=== PATIENT | male | born 1955 | race Caucasian/White ===

== ENCOUNTER 2019-07-06 05:44 | Inpatient (IN) | payer OTHER ==
[2019-06-27 09:19] LABS: HEMATOCRIT 41.8 % (42.0-52.0); HEMOGLOBIN 13.9 gm/dL (14.0-18.0); MCH 27.9 pg (26.0-34.0); MCHC 33.3 g/dL (28.0-37.0); MCV 83.8 fL (80.0-100.0); RBC 4.99 mil/uL (4.50-6.00); RDW 14.7 % (10.5-14.5); WBC 9.6 thou/uL (4.0-11.0)
[2019-06-27 09:28] LABS: URINE BILIRUBIN NEGATIVE (Negative); URINE BLOOD NEGATIVE (Negative); URINE CLARITY CLEAR; URINE COLOR YELLOW; URINE GLUCOSE-RANDOM* NEGATIVE (Negative); URINE KETONES NEGATIVE (Negative); URINE LEUKOCYTES-REFLEX NEGATIVE (Negative); URINE NITRITE-REFLEX NEGATIVE (Negative); URINE PROTEIN (DIPSTICK) NEGATIVE (Negative); URINE UROBILINOGEN 0.2 E.U./dl (0.2-1.0)
[2019-06-27 09:33] LABS: CALCIUM 9.8 mg/dL (8.5-10.1); CREATININE 1.1 mg/dL (0.7-1.3); POTASSIUM 3.9 mmol/L (3.5-5.1)
--- NOTE | 2019-06-27 10:26 | EKG ---
[address] [address] [place] [address] ELECTROCARDIOGRAM REPORT Name: ALEX GARZA Room #: PRE IN M.R.#: [id number] Admission: Attend Phys: Kb Cruz Discharge: Date of : 53 Report #: [id number] THIS REPORT FOR: //name// [facility] Test Date: 2019-06-27 Test Time: 09:13:55 Pat Name: ALEX GARZA Department: Room: Gender: M Director Of Catering: francy marshall : 1955 Requested By: Kb Velasquez Order Number: [id number] MD: Toni Keenan Measurements Intervals [place] Rate: 72 P: 37 IN: 175 QRS: -43 QRSD: 127 T: 89 QT: 432 QTc: 473 Interpretive Statements Sinus rhythm Incomplete RBBB and LAFB Left ventricular hypertrophy No previous ECG available for comparison Electronically Signed On 06-27-2019 10:25:40 SPREADER OPERATOR by Toni Keenan [email or web address] <ELECTRONICALLY SIGNED> By: Toni Keenan MD, [facility] 06/27/19 1025 0913 2 Toni Keenan MD, FACC /EPI
[~2019-07-06] VITALS: Ht 172.7 cm; Wt 127.0 kg
[~2019-07-06 05:44] MED LIST: COZAAR 25 MG TA25 M1 PO; HYDROCHLOROTHIA25 M2 PO; IBUPROFEN 200200 M1 PO; LIPITOR40 MG PO; TRAZODONE HCL50 MG PO; TYLENOL EXTRA500 MG PO; VITAMIN C125 MG PO
[2019-07-06 07:25] VITALS: BP 177/84
[2019-07-06 11:15] VITALS: BP 131/67
--- NOTE | 2019-07-06 12:17 | O ---
[facility] [place] [address] OPERATIVE REPORT Name: ALEX GARZA Room #: 442-P ADM IN M.R.#: [id number] Admission: 07/06/19 Attend Phys: Kb Cruz Discharge: Date of : 53 Report #: [id number] THIS REPORT FOR: //name// CC: Kb Velasquez DATE OF SERVICE: 07/06/2019 PREOPERATIVE DIAGNOSES: Left shoulder rotator cuff tear arthropathy with biceps tendinopathy and tearing. POSTOPERATIVE DIAGNOSES: Left shoulder rotator cuff tear arthropathy with biceps tendinopathy and tearing. PROCEDURE PERFORMED: Left reverse total shoulder arthroplasty with open biceps tenodesis. SURGEON: Kb Velasquez MD APPEALS REFEREE: Trudy Resendez PA-C. ANESTHESIA: General with preoperative ultrasound-guided interscalene block. FLUIDS: 750 mL crystalloid. ESTIMATED BLOOD LOSS: 75 mL IMPLANTS UTILIZED: DePuy Global Unite Delta Xtend standard stem size 12 with a size 1 eccentric epiphysis JOVEL coated, 42+4 lateralized glenosphere, a +6 polyethylene cup. DESCRIPTION OF PROCEDURE: After proper identification of the patient and operative site in preoperative holding area, the operative site was signed by myself. Prophylactic antibiotics given. The patient elected to receive an ultrasound-guided block after reviewing the risks, benefits, alternatives and potential complications with anesthesia. After a satisfactory block, the patient was brought back to the operative suite after induction of satisfactory general anesthesia, the patient was carefully positioned with head of bed elevated approximately 40 degrees in the beach chair. Head and neck were carefully positioned. Left shoulder was sterilely prepped and draped in the usual manner and a Sleek Audio limb positioning system was utilized throughout the entire procedure. Anterior deltopectoral approach was planned. Final skin draping was with Ioban. Skin was incised sharply. Full thickness skin flaps were developed. Cephalic vein in the deltopectoral interval was identified. The vein was most easily taken laterally. Subdeltoid space was carefully opened. Massive rotator cuff tear was noted. Lower portion of the [facility] [address] [place] [address] OPERATIVE REPORT Name: KAYLAALEX Room #: 442-P ADM IN M.R.#: [id number] Admission: 07/06/19 Attend Phys: Kb Cruz Discharge: Date of : 53 Report #: [id number] subscapularis was able to be released and a tag stitch was placed on this and a rotator cuff tear of the entire supraspinatus and majority of the infraspinatus was noted. Advanced degenerative changes were noted about the joint. Long head of the biceps tendon demonstrated advanced tendinopathy and high-grade partial thickness tearing. This was tenodesed to the undersurface of the pectoralis major tendon with #2 FiberWire. This was then followed proximally and resected. Humeral head osteotomy was planned. Humeral head was flattened with an oscillating saw. The canal was entered with a size 6 reamer and progressed up to a size 12, which matched the preoperative templating. Next, the cutting guide was attached. This was performed in approximately 15 degrees of retroversion. The guide was secured with half pins. The intramedullary aspect was removed with the soft tissues protected. Humeral head osteotomy was performed. Small portion of the posterior cuff was still intact. Peripheral osteophytes were removed and a protection plate was applied. Next, the shoulder was reduced in the anterior capsule was released off the remaining inferior subscapularis. Circumferential labral release and excision was performed as well as the biceps tendon. The patient had a large spur off of his more anterior inferior glenoid and with the soft tissues and axillary nerve carefully protected, this was removed. Capsule was released off its insertion on the inferior glenoid under direct observation while protecting the axillary nerve. After satisfactory soft tissue releases, a guide pin was placed, Metaglene guide was placed. Guide pin was advanced into the scapula. A guide pin placement was verified by palpation as well. This was then reamed and a Harley reamer was utilized as well. Any peripheral soft tissue was carefully removed. Step drill was utilized. Central peg was contained and a standard Metaglene was impacted into position, it had excellent fixation. Locking screws were placed superiorly and inferiorly starting inferior. These measured 30 and 24 mm and then two 18 nonlocking screws were placed in the anterior, posterior spot. These were sequentially tightened. Locking screws were locked and a +4 lateralized centered 42 mm glenosphere was placed over a guidewire and carefully positioned. The tightening screw was rotated counterclockwise, still a click was noted. After this was felt to be engaged, it was then tightened, impacted and tightened three additional times. It was fully seated and felt stable. At this point, the humerus was reamed with an acetabular reamer to accommodate a size 1 epiphysis. Peripheral osteophytes around the humerus were carefully removed. Trial was assembled, placed into position and then a +3 and +6 polyethylene cups were utilized with the +6 providing the best overall fit and stability. Trial implants were removed multiple times throughout the procedure, antibiotic irrigant was utilized. One drill hole was placed through the anterior cortex of the humerus and a #2 FiberWire was passed through this. Global Unite distal stem was assembled with a size 1 epiphysis. This was carefully impacted into position, was well seated and felt stable. The sutures were wrapped around the stem and utilized to repair the subscapularis of its inferior aspect with modified Charlie-Bill stitch. After the +6 polyethylene liner had been carefully impacted into position and the shoulder reduced, shoulder was stable to longitudinal traction. There was no propensity for dislocation with attempted [facility] [address] [place] [address] OPERATIVE REPORT Name: ALEX GARZA Room #: 442-P ADM IN M.R.#: [id number] Admission: 07/06/19 Attend Phys: Kb Cruz Discharge: Date of : 53 Report #: [id number] lateralization and no obvious impingement was noted with the arm in a more adducted position. Wound was again thoroughly irrigated with antibiotic irrigant. One gram vancomycin powder was utilized, half at deep, half at more superficial. Deltopectoral interval was closed with 0 Vicryl, 2-0 Vicryl for the subcutaneous tissues, final skin closure was with running Monocryl, sealed with Dermabond. Sterile dressing was applied as well as he was placed in a sling and abduction pillow for 4 weeks postoperatively. Qualified orthotic assistant utilized throughout the entire procedure to aid in patient limb positioning, visualization, retraction of soft tissues, instrument passage, closure and sling and dressing application. <ELECTRONICALLY SIGNED> By: Kb Velasquez MD 07/06/19 1217 1014 1056 Kb Velasquez MD /jackelin
--- NOTE | 2019-07-06 18:20 | NUR ---
64 YO MALE ADMITTED FROM PACU. A&OX4. L SHOULDER WITH AQUACELL BANDAGE AND POLAR PACK, SHOULDER BRACE IN PLACE. TOLERATING PO WELL. SITTING IN CHAIR. ORIENTED PT TO ROOM/ CALL LIGHT.
[2019-07-06 19:23] VITALS: BP 150/92
--- NOTE | 2019-07-07 01:15 | NUR ---
PT WAS OBSERVED SITTING UP IN THE RECLINER IN HIS ROOM WATCHING TV AT THE START OF SHIFT.PT C/O PAIN ON HIS L SHOULDER,MANAGED WITH MED AND ICE.URINAL AT BEDSIDE.PT WITH HX OF SLEEP APNEA,PT SLEEPING WITH HIS CPAP IN THE ROOM.PT RESTING AT THIS TIME IN THE RECLINER IN HIS ROOM.CALL LIGHT WITHIN REACH.
[2019-07-07 04:17] VITALS: BP 132/53
[2019-07-07 05:32] LABS: HEMATOCRIT 36.9 % (42.0-52.0); HEMOGLOBIN 11.9 gm/dL (14.0-18.0)
[2019-07-07 05:54] LABS: POTASSIUM 3.6 mmol/L (3.5-5.1)
[2019-07-07 07:25] VITALS: BP 139/57
--- NOTE | 2019-07-07 15:20 | NUR ---
ASSUMED CARE OF THE PT AT 0700. PTS PAIN LEVEL IS A CONSTANT 9, TREATING WITH PAIN MEDICATION, SEE EMAR. PTS CAP REFILL ON L HAND IS LESS THAN 3. POLAR PACK AQUACEL BANDAGE IN PLACE ON L SHOULDER, SHOULDER IS SWOLLEN AND IN A SLING. R FOREARM IV DRY AND INTACT. PTS LUNGS ARE CLEAR. PT IS AMBULATORY. PT CLEARED PT TO GO HOME, BUT PAIN IS NOT UNDER CONTROL. SPOKE TO PT ABOUT USING CALL LIGHT WHEN HE NEEDS SOMETHING, HE UNDERSTOOD. CALL LIGHT IS WITHIN REACH AND CAHIR IS LOCKED. WILL CONTINUE TO MONITOR THE PT.
[2019-07-07 16:09] VITALS: BP 133/70
[2019-07-07 19:45] VITALS: BP 126/56
--- NOTE | 2019-07-08 02:29 | NUR ---
PT OBSERVED SITTING UP IN HIS WHEELCHAIR WITH FAMILY IN ROOM AT START OF SHIFT.PT C/O PAIN ON HIS SHOULDER,MANAGED WITH MED AND ICE.PT UP ADLIB IN ROOM WITH A STEADY GAIT.PT SLEEPING IN HIS ROOM WITH HIS CPAP IN PLACE AT THIS TIME.CALL LIGHT WITHIN REACH.
[2019-07-08 03:50] VITALS: BP 131/58
[2019-07-08 08:37] VITALS: BP 144/76
--- NOTE | 2019-07-08 12:04 | NUR ---
ASSUMED CARE OF THE PT AT 0700. PT IS AMBULATORY AND WALKS HIMSELF AROUND THE ROOM WITH SLING ON L ARM. PTS THROAT IS STILL SOMEWHAT SORE, BUT NO C/O IT WORSENING, PT HAS LOZENGES. R FOREARM DRY AND INTACT. PT WILL BE DISCHARGING TODAY. PT TOOK A SHOWER TODAY. PAIN IS STILL BEING CONTROLLED BY PAIN MEDICATION, SEE EMAR. CALL LIGHT WITHIN REACH AND CHAIR IS LOCKED. WILL CONTINUE TO MONITOR THE PT.
[2019-07-08 14:05] VITALS: BP 144/76
== END 2019-07-08 14:49 | disposition home or self-care (01) | DRG 483 ==
LOC: TBA → 4S 05:44 → TBA 05:44 → PRE 11:04 → 4S 11:21 → TBA 13:18 → OR 13:49 → EDSTATUS 13:53 → 4S 07-08 14:49
PROVIDERS: Physician Assistant Surgical; ADMIT Orthopaedic Surgery Sports Medicine
PROC: 0RRK00Z Replacement of Left Shoulder Joint with Reverse Ball and Socket Synthetic Substitute, Open Approach (ICD-10-PCS; principal; 2019-07-06)
PROC: 0LS40ZZ Reposition Left Upper Arm Tendon, Open Approach (ICD-10-PCS; 2019-07-06)
DX: M75.102 Unspecified rotator cuff tear or rupture of left shoulder, not specified as traumatic (principal); Z68.41 Body mass index [BMI] 40.0-44.9, adult; K64.9 Unspecified hemorrhoids; M54.9 Dorsalgia, unspecified; J30.2 Other seasonal allergic rhinitis; E66.8 Other obesity; M51.36 Other intervertebral disc degeneration, lumbar region; I10 Essential (primary) hypertension; M17.11 Unilateral primary osteoarthritis, right knee; Z79.891 Long term (current) use of opiate analgesic; Z79.899 Other long term (current) drug therapy; Z88.5 Allergy status to narcotic agent
CPT/HCPCS: 10102; 50010; 50101; 50172; 50386; 50417; 50697; 50733; 50935; 51320; 52138; 52256; 53000; 53078; 54118; 55430; 56455; 56524; 56525; 56526; 56530; 56668; 57095; 57103; 62110; 62900; 64039; 70005

== ENCOUNTER → 2020-06-12 | Outpatient (CLI) | payer OTHER ==
[~2020-06-12] MED LIST changes: +LEVOTHYROXINE50 MCG PO; +LOSARTAN POTASS50 MG PO; +NEURONTIN 300M300 M2 PO
== END ==
LOC: LAB 07:35
PROVIDERS: ATTEND Student in an Organized Health Care Education/Training Program
DX: Z01.812 Encounter for preprocedural laboratory examination (principal); Z20.828 Contact with and (suspected) exposure to other viral communicable diseases

== ENCOUNTER 2020-06-18 06:28 | Day surgery (SDC) | payer OTHER ==
[2020-06-12 11:11] LABS: URINE BILIRUBIN NEGATIVE (Negative); URINE BLOOD NEGATIVE (Negative); URINE CLARITY CLEAR; URINE COLOR YELLOW; URINE GLUCOSE-RANDOM* NEGATIVE (Negative); URINE KETONES NEGATIVE (Negative); URINE LEUKOCYTES-REFLEX NEGATIVE (Negative); URINE NITRITE-REFLEX NEGATIVE (Negative); URINE PROTEIN (DIPSTICK) NEGATIVE (Negative); URINE SPECIFIC GRAVITY 1.015 (1.005-1.035); URINE UROBILINOGEN 0.2 E.U./dl (0.2-1.0)
[2020-06-12 11:16] LABS: HEMATOCRIT 41.3 % (42.0-52.0); HEMOGLOBIN 13.5 gm/dL (14.0-18.0); MCH 27.2 pg (26.0-34.0); MCHC 32.7 g/dL (28.0-37.0); MCV 83.4 fL (80.0-100.0); RBC 4.95 mil/uL (4.50-6.00); RDW 15.5 % (10.5-14.5); WBC 7.5 thou/uL (4.0-11.0)
[2020-06-12 11:23] LABS: ALBUMIN 3.9 g/dL (3.4-5.0); CALCIUM 9.7 mg/dL (8.5-10.1); POTASSIUM 3.9 mmol/L (3.5-5.1)
[2020-06-12 11:24] LABS: PROTIME 10.3 Seconds (9.3-11.4)
--- NOTE | 2020-06-12 11:57 | EKG ---
[address] [address] [facility] [place] [address] ELECTROCARDIOGRAM REPORT Name: ALEX GARZA Room #: PRE [facility] M.R.#: [id number] Admission: Attend Phys: Buck Quarles MD Discharge: Date of : 53 Report #: [id number] [facility] Test Date: 2020-06-12 Test Time: 11:27:35 Pat Name: ALEX GARZA Department: Room: Gender: M Order To Delivery Supervisor: CANDE : 1955 Requested By: Buck Quarles Order Number: [id number] MD: Rell Antonio Measurements Intervals [place] Rate: 66 P: 30 DE: 186 QRS: -37 QRSD: 129 T: 33 QT: 407 QTc: 427 Interpretive Statements Sinus rhythm Nonspecific IVCD with LAD Left ventricular hypertrophy Compared to ECG 06/27/2019 09:13:55 Intraventricular conduction delay now present Left anterior fascicular block no longer present Incomplete right bundle-branch block no longer present Right bundle-branch block no longer present Electronically Signed On 06-12-2020 11:57:49 MILITARY POLICE OFFICER by Rell Antonio [email or web address] <ELECTRONICALLY SIGNED> By: Rell Antonio MD, [facility] 06/12/20 1667 1127 112 Rell Antonio MD, [facility] /EPI
[~2020-06-18] VITALS: Ht 172.7 cm; Wt 128.8 kg
[2020-06-18 07:20] VITALS: BP 152/87
[2020-06-18 12:55] VITALS: BP 124/70
[2020-06-18 17:20] VITALS: BP 148/75
[2020-06-18 19:01] VITALS: BP 147/65
--- NOTE | 2020-06-18 19:41 | NUR ---
PATIENT ADMITTED FROM OR WITH RIGHT TOTAL KNEE REPLACEMENT. VANIA DRESSING, SCD'S, KNEE HIGH CHRISTINA HOSE. PATIENT C/O PAIN WITH RIGHT KNEE, HYDROCODONE 1 TABLET GIVEN THIS SHIFT. LEFT FOREARM IV IN PLACE, IV FLUIDS STARTED AT 100CC/HR. LAKIA/PT WORKED WITH THE PATIENT, PATIENT DID WELL, PATIENT EXPECT TO GO HOME TOMORROW. ADMISSION COMPLETED, REPORT GIVEN TO THE NIGHTSHIFT NURSE/LIZZY/RN.
--- NOTE | 2020-06-19 04:12 | NUR ---
ASSUMED CARE OF PT AT 1900HRS. PT AOX4 AND LETS NEEDS BE KNOWN. PT IS S/P KNEE REPLACEMENT DAY 0. POLAR CARE, TEDS, SCDS AND BRIELLE WRAP IN PLACE. PT REPORTED SOME PAIN AND WAS TREATED WITH PRN PO PAIN MEDS. PT COMPLAINED OF DRY MOUTH AND ICE CHIPS WERE PROVIDED. ABX DOSES COMPLETED. PT WAS ABLE TO GET COMFORTABLE ANF SLEEP PART OF THE SHIFT. VSS AND NO S/S OF ACUTE DISTRESS. WILL CONTINUE TO MONITOR.
[2020-06-19 04:32] VITALS: BP 129/60
[2020-06-19 06:07] LABS: HEMATOCRIT 33.9 % (42.0-52.0); HEMOGLOBIN 10.7 gm/dL (14.0-18.0); MCH 26.5 pg (26.0-34.0); MCHC 31.5 g/dL (28.0-37.0); MCV 84.3 fL (80.0-100.0); RBC 4.02 mil/uL (4.50-6.00); RDW 15.9 % (10.5-14.5); WBC 12.2 thou/uL (4.0-11.0)
[2020-06-19 08:03] VITALS: BP 117/55
--- NOTE | 2020-06-19 09:23 | NUR ---
ASSESSMENT: CM REVIEWED CHART AND MET WITH PATIENT. PT IS ALERT AND ORIENTED X4. PT REPORTS LIVING IN A HOUSE WITH HIS . PT IS S/P RIGHT TKA. PT REPORTS HAVING ABOUT 3 STEPS TO ENTER THE HOME. PT STATES HE CAN STAY ON THE MAIN LEVEL IF NEEDED BUT DOES HAVE ABOUT 12 STEPS WITH HANDRAILS TO HIS BEDROOM. PT REPORTS HE IS NORMALLY INDEPENDENT WITH ADLS AND AMBULATION. PT IS NEEDING A WALKER FOR DISCHARGE AND HAS NO PREFERENCE OF COMPANY. CM NOTIFIED [employer] AND THEY HAVE DELIVERED A WALKER TO PATIENTS ROOM. PT REPORTS HAVING OUTPATIENT THERAPY ARRANGED AT [facility] FOR 06/25/19. PT REPORTS HAVING NO FURTHER NEEDS FROM CM.
[2020-06-19 09:26] VITALS: BP 117/55
--- NOTE | 2020-06-19 12:48 | NUR ---
ASSUMED CARE [id number]. PT IS A&O X4. VANIA DRESSING, CHRISTINA/SCD HOSE ARE IN PLACE ALONG WITH POLAR CARE. PT COMPLAINS OF SLIGHT PAIN AND WAS GIVEN MORHPINE ER SCHEDULE MED. PT DENIES N,V,SOA. PT IS WT BEARING TOLERATED. DRESSING IS INTACT AND DRY. IV IS INTACT AND SHOWS NO SIGNS OF REDNESS OR SWELLING. VSS. FALL PRECAUTION .CALLL LIGHT WITHIN [facility].
--- NOTE | 2020-06-20 08:30 | O ---
[facility] [place] [address] OPERATIVE REPORT Name: ALEX GARZA Room #: DEP [facility]..#: [id number] Admission: 06/18/20 Attend Phys: Buck Quarles MD Discharge: 06/19/20 Date of : 53 Report #: [id number] THIS REPORT FOR: cc: Kb Mckenzie MD, Gregory MD Abraham,Buck Griggs MD ~ DATE OF SERVICE: 06/18/2020 PREOPERATIVE DIAGNOSIS: Right knee osteoarthritis. POSTOPERATIVE DIAGNOSIS: Right knee osteoarthritis. PROCEDURE: Right total knee arthroplasty using Navio robotic assistance. SURGEON: Buck Quarles MD. PURCHASING INTERNSHIP: Marimar Lovelace PA-C. INDICATIONS FOR PURCHASING INTERNSHIP: Throughout the case, extensive retraction and manipulation of the knee was required. This was afforded to me by my account management assistant. ANESTHESIA: LMA with an adductor canal block. IMPLANTS: Roldan and Nephew size 6, Journey II BCS Oxinium femur, a size 5 tibia, size 11 polyethylene, and size 35 patella. TOURNIQUET TIME: 54 minutes. ESTIMATED BLOOD LOSS: 25 mL. COMPLICATIONS: None. SPECIMENS: None. CONDITION UPON LEAVING THE OPERATING ROOM: Stable. INDICATIONS FOR PROCEDURE: The patient is a 65-year-old gentleman with right knee osteoarthritis. He had failed conservative measures for this, and after discussion with him, he elected for right total knee arthroplasty. DESCRIPTION OF PROCEDURE: Risks, benefits, alternatives, and complications were discussed in detail with the patient including but not limited to risk of anesthesia, risk of damage to nerves, arteries, blood vessels, risk for infection, bleeding, risk for continued knee pain, and need for reoperation. Informed consent was obtained from the patient. Right knee was appropriately [address] [address] OPERATIVE REPORT Name: KAYLAALEX KALIA HAAS Room #: DEP [facility] M.R.#: [id number] Admission: 06/18/20 Attend Phys: Buck Quarles MD Discharge: 06/19/20 Date of : 53 Report #: [id number] marked in the preoperative holding area. IV Ancef was given for preoperative antibiotics. He was brought to the operating room and placed in supine position on operating room table. LMA anesthesia was induced without complication. Tourniquet was placed on the right thigh. Right lower extremity was prepped and draped in normal sterile fashion. Timeout was performed, properly identifying the patient and procedure as well as the instrumentation and implants. All in the operating room were in agreement. Right lower extremity was exsanguinated, tourniquet was inflated. Tourniquet time was 54 minutes. Standard midline approach to the knee was made with 10-blade through the skin. Dissection was taken down sharply to the fascia, and deep flaps were developed medially and laterally. Fresh 10-blade was used to make a medial parapatellar arthrotomy, and the knee was inspected. There was severe tricompartmental osteoarthritis. ACL and PCL were removed sharply. Reference pins were placed in the femur and the tibia. The knee was then digitally mapped using the [employer] robotic system. Intraoperative plan was made and we sized the size 6 femur, a size 5 tibia and a size 10 spacer. After acceptance of the intraoperative plan, the distal femoral cut was made with Navio bur. Distal femoral cutting block was pinned in place and chamfer cuts were made. Attention was then turned to the tibia. Remainder of the menisci removed with Bovie cautery. Tibial resection guide was pinned in place using the Navio for placement, and tibial resection was made. Flexion and extension gaps were then checked and found to have good balance in flexion and extension both medially and laterally. Tibia was sized, found to be a size 5. A size 5 tibial trial was placed, pinned, and punched. A size 6 femoral trial was placed and box cut was made. This was then trialed with a size 10 and then a size 11 polyethylene. Size 11 polyethylene demonstrated 1-2 mm of laxity medially and laterally throughout range of motion of the knee. A 9 mm was resected from the posterior surface of the patella and a size 35 patellar trial button was placed. Knee was taken through range of motion, found to be stable, found to have good patellar tracking. Trial components were removed. Bony ends were thoroughly irrigated with normal saline. A final size 5 tibia, size 6 Journey II BCS Oxinium femur, and a size 35 patella were cemented in place using standard cementation techniques. While the cement cured, a periarticular injection consisting of morphine, ropivacaine, epinephrine, and Toradol was placed around the knee joint capsule. After the cement cured, tourniquet was deflated. Hemostasis was obtained with Bovie cautery. A final size 11 polyethylene was placed. A gram of vancomycin was placed deep in the joint. Fascia was closed with 0 Vicryl, skin was closed with 2-0 Vicryl, skin staple, and a VANIA dressing was applied. The patient tolerated this procedure well and went to recovery room under care of anesthesia postoperatively. <ELECTRONICALLY SIGNED> By: Buck Quarles MD 06/20/20 0830 1544 1715 Buck Quarles MD /nt
== END 2020-06-19 16:39 | disposition home or self-care (01) ==
LOC: OR → TBA 06:29 → OR 10:36 → 4S 13:01 → OR 15:50
PROVIDERS: ATTEND Orthopaedic Surgery
DX: M17.11 Unilateral primary osteoarthritis, right knee (principal); M25.561 Pain in right knee; I10 Essential (primary) hypertension; E03.9 Hypothyroidism, unspecified; E78.5 Hyperlipidemia, unspecified; G47.30 Sleep apnea, unspecified; M19.90 Unspecified osteoarthritis, unspecified site; Z98.890 Other specified postprocedural states; Z79.899 Other long term (current) drug therapy; Z96.612 Presence of left artificial shoulder joint; Z87.891 Personal history of nicotine dependence; Z88.8 Allergy status to other drugs, medicaments and biological substances
CPT/HCPCS: 50010; 50101; 50415; 50954; 51130; 51225; 51320; 52001; 52282; 53000; 53078; 53365; 56527; 56528; 57095; 57103; 57110; 57127; 57180; 70005